=== PATIENT | female | born 1955 | race Caucasian/White ===

== ENCOUNTER → 2020-08-11 | Outpatient (CLI) | payer OTHER | END | disposition home or self-care (01) | LOC: CFH 14:28 | PROVIDERS: ATTEND Family Medicine | DX: Z12.31 Encounter for screening mammogram for malignant neoplasm of breast (principal) | CPT/HCPCS: 77063; 77067 ==

== ENCOUNTER 2020-11-29 16:53 | Emergency (ER) | payer OTHER ==
[~2020-11-29] VITALS: Ht 149.9 cm; Wt 74.5 kg
[2020-11-29] MEDS ORDERED: SODIUM CHLORIDE 0.9% 1,000ML IVBOLUS ONE (17:30)
[2020-11-29] MEDS ORDERED: SODIUM CHLORIDE FLUSH 10ML SYR IVF ONE (17:30)
[2020-11-29 17:57] LABS: BASOPHILS % (AUTO) 0 % (0-1); EOSINOPHILS % (AUTO) 2 % (1-7); LYMPHOCYTES % (AUTO) 3 % (22-44); MEAN CORPUSCULAR HEMOGLOBIN 31.5 pg (27.0-34.8); MEAN CORPUSCULAR HGB CONC 34.5 g/dL (32.4-35.8); MEAN PLATELET VOLUME 8.4 fL (7.4-10.4); MONOCYTES % (AUTO) 3 % (2-9); NEUTROPHILS % (AUTO) 93 % (42-75); PLATELET COUNT 244 x10^3/uL (130-400); RED BLOOD COUNT 5.05 x10^6/uL (3.82-5.3); RED CELL DISTRIBUTION WIDTH 13.4 % (9.6-15.2)
[2020-11-29] MEDS ORDERED: OMNIPAQUE 350 MG/ML, 100ML BOTTLE ONE (18:00)
[2020-11-29 18:09] LABS: ALANINE AMINOTRANSFERASE 33 U/L (12-78); ALBUMIN 4.1 g/dL (3.4-5.0); ANION GAP 6 mmol/L (5-15); CALCIUM 9.6 mg/dL (8.5-10.1); CHLORIDE 109 mmol/L (98-107)
[2020-11-29 18:12] LABS: ALKALINE PHOSPHATASE 211 U/L (45-117); BILIRUBIN,TOTAL 0.8 mg/dL (0.2-1.0); CREATININE 1.24 mg/dL (0.55-1.02); TOTAL PROTEIN 8.5 g/dL (6.4-8.2)
--- NOTE | 2020-11-29 18:25 | NUR ---
UA COLLECTED VIA SC WITH FAMILY AT BEDSIDE. SENT TO LAB. PT TOLERATED WELL.
[2020-11-29 18:44] LABS: MICROSCOPIC AUTO
[2020-11-29 18:45] LABS: MD SCAN
--- NOTE | 2020-11-29 19:11 | NUR ---
patient resting in bed in NAD. reports nausea has decreased after medication. also states abdominal pain is intermittent and "comes in waves lasting for a few seconds". patient in NAD. daughter at bedside. safety maintained. call peters in reach. will continue to monitor.
[2020-11-29] MEDS ORDERED: ONDANSETRON 2MG/ML, 2ML ONE (20:19)
[2020-11-29] MEDS ORDERED: ONDANSETRON 2MG/ML, 2ML IVPush ONE (20:30)
--- NOTE | 2020-11-29 20:45 | NUR ---
daughter remains at bedside. patient denies pain at this time. still c/o mild nausea. PO challenge started. in NAD. will continue to monitor.
[2020-11-29] MEDS ORDERED: ACETAMINOPHEN 325 MG TABLET ONE (20:52)
[2020-11-29] MEDS ORDERED: ACETAMINOPHEN 325 MG TABLET PO ONE (21:00)
--- NOTE | 2020-11-29 21:19 | NUR ---
2nd cup of water given. patient reports nausea has subsided and tolerating PO fluids.in NAD. denies pain
--- NOTE | 2020-11-29 21:57 | NUR ---
discharge instructions reviewed with patient and daughter present at bedside. no further questions at this time. in NAD and VS remain stable on RA prior to DC. all personal belongings with patient on dc. steady gait to lobby. prescription handed directly to patient. IV removed per dc protocol. patient denies nausea and pain prior to dc. tolerated 2 cups of water
[2020-11-29 21:58] VITALS: BP 109/57
== END 2020-11-29 22:02 | disposition home or self-care (01) ==
LOC: ED 18:25
DX: R10.84 Generalized abdominal pain (principal); R11.2 Nausea with vomiting, unspecified; E86.0 Dehydration; Z90.49 Acquired absence of other specified parts of digestive tract
CPT/HCPCS: 36415; 74177; 80053; 81001; 83690; 85025; 87086; 96361; 96374; 99285; J2405; J7030; Q9967